=== PATIENT | male | born 1970 | race Caucasian/White ===

== ENCOUNTER 2021-10-04 00:57 | Emergency (ER) | payer OTHER ==
[2021-10-04 01:17] VITALS: BP 159/93
[2021-10-04 01:30] VITALS: BP 165/94
[2021-10-04 01:46] VITALS: BP 147/95
[2021-10-04] MEDS ORDERED: GENTAMICIN SULF5 ML OS (01:47)
[2021-10-04 02:00] VITALS: BP 151/93
== END 2021-10-04 02:09 | DRG 115 ==
LOC: ED 00:57
PROC: 08C9XZZ Extirpation of Matter from Left Cornea, External Approach (ICD-10-PCS; principal; 2021-10-04)
DX: T15.02XA Foreign body in cornea, left eye, initial encounter (principal); X58.XXXA Exposure to other specified factors, initial encounter; Y93.89 Activity, other specified; Y92.149 Unspecified place in prison as the place of occurrence of the external cause